=== PATIENT | male | born 1990 | race Caucasian/White ===

== ENCOUNTER 2016-09-20 15:09 | Emergency (ER) | payer SELFPAY ==
[~2016-09-20] VITALS: Ht 180.3 cm; Wt 78.1 kg
[2016-09-20 15:14] VITALS: BP 109/65
== END 2016-09-20 16:09 | disposition home or self-care (01) ==
LOC: ED 16:06
DX: Z53.21 Procedure and treatment not carried out due to patient leaving prior to being seen by health care provider (principal)

== ENCOUNTER 2020-01-25 22:36 | Emergency (ER) | payer MEDICAID ==
[~2020-01-25] VITALS: Ht 177.8 cm; Wt 83.8 kg
[~2020-01-25 22:36] MED LIST: OXYCODONE; VICODIN
[2020-01-25 22:39] VITALS: BP 141/87
[2020-01-25] MEDS ORDERED: IBUPROFEN 800 MG TABLET PO STA (22:57)
[2020-01-25] MEDS ORDERED: HYDROcodone/APAP 5/325 TABLET PO STA (22:57)
--- NOTE | 2020-01-25 23:21 | NUR ---
PT IS LAYING MCC IN GURNEY, LEG OFF THE SIDE TWITCHING. NADN. PT HAS PICKING SCARS UP AND DOWN HIS ARMS. PT DENIES DRUG USE. VISITOR AT BEDSIDE.
[2020-01-25] MEDS ORDERED: IBUPROFEN 800 MG TABLET ONE (23:30)
[2020-01-25] MEDS ORDERED: HYDROcodone/APAP 5/325 TABLET ONE (23:31)
[2020-01-25 23:39] LABS: ALANINE AMINOTRANSFERASE 67 U/L (12-78); ALBUMIN 4.1 g/dL (3.4-5.0); ANION GAP 3 mmol/L (5-15); CALCIUM 8.8 mg/dL (8.5-10.1); CHLORIDE 105 mmol/L (98-107); CREATININE 1.04 mg/dL (0.7-1.3)
[2020-01-25 23:42] LABS: ALKALINE PHOSPHATASE 75 U/L (45-117); BASOPHILS % (AUTO) 1 % (0-1); BILIRUBIN,TOTAL 1.1 mg/dL (0.2-1.0); EOSINOPHILS % (AUTO) 2 % (1-7); LYMPHOCYTES % (AUTO) 28 % (22-44); MEAN CORPUSCULAR HEMOGLOBIN 30.2 pg (27.5-34.5); MEAN CORPUSCULAR HGB CONC 34.2 g/dL (33.2-36.2); MEAN PLATELET VOLUME 8.1 fL (7.4-10.4); MONOCYTES % (AUTO) 15 % (2-9); NEUTROPHILS % (AUTO) 54 % (42-75); PLATELET COUNT 223 x10^3/uL (130-400); RED BLOOD COUNT 4.84 x10^6/uL (4.38-5.82); RED CELL DISTRIBUTION WIDTH 15.1 % (9.4-14.8); TOTAL PROTEIN 7.6 g/dL (6.4-8.2)
[2020-01-25 23:43] LABS: MD NO
== END 2020-01-26 00:55 | disposition home or self-care (01) ==
LOC: ED 23:45
DX: L03.113 Cellulitis of right upper limb (principal); L03.112 Cellulitis of left axilla; F15.129 Other stimulant abuse with intoxication, unspecified; R00.0 Tachycardia, unspecified; Z72.9 Problem related to lifestyle, unspecified; F17.210 Nicotine dependence, cigarettes, uncomplicated
CPT/HCPCS: 36415; 80053; 85025; 99283

== ENCOUNTER 2020-03-22 00:29 | Emergency (ER) | payer MEDICAID ==
[~2020-03-22] VITALS: Ht 175.3 cm; Wt 75.0 kg
[2020-03-22] MEDS ORDERED: SODIUM CHLORIDE FLUSH 10ML SYR IVF ONE (01:30)
[2020-03-22] MEDS ORDERED: ONDANSETRON 2MG/ML, 2ML IVPush ONE (01:30)
[2020-03-22] MEDS ORDERED: MORPHINE SULFATE 4 MG/ML, 1ML IVPush PRN (01:30)
[2020-03-22] MEDS ORDERED: CLINDAMYCIN PMX 600MG/50ML 50 ML IV ONE (01:30)
[2020-03-22] MEDS ORDERED: SODIUM CHLORIDE 0.9% 1,000ML IVBOLUS ONE (01:30)
[2020-03-22] MEDS ORDERED: MORPHINE SULFATE 4 MG/ML, 1ML ONE (01:59)
[2020-03-22] MEDS ORDERED: CLINDAMYCIN PMX 600MG/50ML 50 ML ONE (01:59)
[2020-03-22] MEDS ORDERED: ONDANSETRON 2MG/ML, 2ML ONE (01:59)
[2020-03-22] MEDS ORDERED: PROPOFOL 10 MG/ML, 20ML IVPush ONE (02:00)
[2020-03-22 02:03] LABS: BASOPHILS % (AUTO) 1 % (0-1); EOSINOPHILS % (AUTO) 2 % (1-7); LYMPHOCYTES % (AUTO) 14 % (22-44); MEAN CORPUSCULAR HEMOGLOBIN 29.6 pg (27.5-34.5); MEAN CORPUSCULAR HGB CONC 34.5 g/dL (33.2-36.2); MEAN PLATELET VOLUME 7.4 fL (7.4-10.4); MONOCYTES % (AUTO) 8 % (2-9); NEUTROPHILS % (AUTO) 76 % (42-75); PLATELET COUNT 335 x10^3/uL (130-400); RED BLOOD COUNT 4.68 x10^6/uL (4.38-5.82); RED CELL DISTRIBUTION WIDTH 13.7 % (9.4-14.8)
[2020-03-22 02:04] LABS: MD NO
[2020-03-22 02:10] LABS: ALBUMIN 3.5 g/dL (3.4-5.0); ANION GAP 5 mmol/L (5-15); CHLORIDE 99 mmol/L (98-107); CREATININE 1.04 mg/dL (0.7-1.3)
--- NOTE | 2020-03-22 02:12 | NUR ---
PT HERE FOR ABCESS ON RIGHT LEG, PT STATES HE HAS NOT INJECTED ANY METH/HEROIN FOR PAST 2 MONTHS. PT'S FRIEND AT BEDSIDE TOLD THIS RN THAT PT IS STILL CURRENTLY INJECTING. ABCESS IS SUBSTANTIAL AND EXPLAINED TO PATIENT NEED TO SEDATE AND DRAIN, BY MD. PT UNDERSTANDING AND AGREEABLE TO POC. ULTRASOUND PIV ESTABLISHED AFTER 5 ATTEMPTS, LABS DRAWN, ULTRASOUND AT BEDSIDE, SETUP FOR PRCEDURAL SEDATION SET UP.
[2020-03-22] MEDS ORDERED: LIDOCAINE-MPF 1%, 5ML ONE (02:35)
[2020-03-22] MEDS ORDERED: PROPOFOL 10 MG/ML, 20ML ONE (02:35)
--- NOTE | 2020-03-22 02:59 | NUR ---
I/D COMPLETED THROUGH PROCEDURAL SEADTION. SEE PROCEDUARAL SEDATION PAPERS FOR FOR VITALS AND INFORMATION. TOTAL PROPOFOL GIVEN WAS 240 MG. 160 MG PROPOFOL WASTED.
[2020-03-22 04:26] VITALS: BP 109/65
== END 2020-03-22 05:24 | disposition home or self-care (01) ==
LOC: ED 01:26
DX: L03.115 Cellulitis of right lower limb (principal); F15.10 Other stimulant abuse, uncomplicated; F17.210 Nicotine dependence, cigarettes, uncomplicated; A41.9 Sepsis, unspecified organism; Z72.9 Problem related to lifestyle, unspecified
CPT/HCPCS: 10060; 36415; 80048; 82040; 83605; 84145; 85025; 87040; 87070; 87077; 87205; 93971; 96365; 96366; 99152; 99285; 99406; J7030

== ENCOUNTER 2020-03-23 21:48 | Emergency (ER) | payer MEDICAID ==
[~2020-03-23] VITALS: Ht 177.8 cm; Wt 76.0 kg
--- NOTE | 2020-03-23 22:06 | NUR ---
Oil Exploration Engineer went in to check on patient at this time to do assessment. Patient still sitting in wheelchair and not undressed. Told patient for the MD to come in and see him that he will need to get changed. Also asked patient and patient friend to keep masks on. Patient given a blanket.
--- NOTE | 2020-03-23 22:20 | NUR ---
Dressing supplies placed at bedside
[2020-03-23] MEDS ORDERED: CEPHALEXIN 500 MG CAPSULE ONE (22:36)
[2020-03-23] MEDS ORDERED: SULFAMETH./TRIMETHOPRIM DS 800MG/160MG TABLET ONE (22:36)
[2020-03-23 22:54] VITALS: BP 124/68
[2020-03-23] MEDS ORDERED: CEPHALEXIN 500 MG CAPSULE PO ONE (23:00)
[2020-03-23] MEDS ORDERED: SULFAMETH./TRIMETHOPRIM DS 800MG/160MG TABLET PO ONE (23:00)
== END 2020-03-23 23:02 | disposition home or self-care (01) ==
LOC: ED 22:34
DX: L02.415 Cutaneous abscess of right lower limb (principal); Z48.01 Encounter for change or removal of surgical wound dressing
CPT/HCPCS: 99283

== ENCOUNTER 2020-03-28 05:17 | Emergency (ER) | payer MEDICAID ==
[~2020-03-28] VITALS: Ht 175.3 cm; Wt 76.7 kg
[2020-03-28 05:28] VITALS: BP 134/76
--- NOTE | 2020-03-28 06:10 | NUR ---
PT HAS C/O RIGHT INSIDE THIGH ABCESS PACKING REMOVAL. PT WOUND HAS WHITE DISCHARGE WITH PACKING STRING VISABLE. LIDOCAIN PROVIDED TO PROVIDER.
[2020-03-28] MEDS ORDERED: LIDOCAINE 2% VISCOUS 15 ML UDC ONE (06:17)
[2020-03-28] MEDS ORDERED: LIDOCAINE 2% VISCOUS 15 ML UDC MM ONE (06:30)
--- NOTE | 2020-03-28 06:47 | NUR ---
PT RESTING IN BED, PT DENIED ANY WANTS OR NEEDS AT THIS TIME.
== END 2020-03-28 06:54 | disposition home or self-care (01) ==
LOC: ED 05:58
DX: Z48.01 Encounter for change or removal of surgical wound dressing (principal)
CPT/HCPCS: 99283